=== PATIENT | male | born 1945 | race Caucasian/White ===

== ENCOUNTER → 2023-09-15 11:49 | Outpatient (CLI) | payer OTHER, SELFPAY ==
--- NOTE | 2023-09-15 | DI.ECHO.S_ITS ---
[facility]---------+ [facility] +---------+ : : [address] : : : : [id number] : : : : Phone: [phone]+ Echocardiogram Report + + :Name: ELVER CHERRY Study Date: 09/15/2023 Height: 67 in : :[facility] ReadingLocation: Weight: 190 lb : : Gender: Male BSA: 2.0 m2 : :: 1945 Age: 78 yrs BP: 143/81 mmHg: :Reason For Study: SCREENING : :Ordering Physician: ABDIRASHID, : :JAY Performed By: Lucio Solis : :Referring: JAY MENDENHALL : + + Interpretation Summary 1) Mildly increased left ventricular thickness (concentric) with normal size, normal wall motion, and normal systolic function (EF 55-60%). 2) Normal right ventricular size and function. 3) No significant valvular abnormalities. 4) No prior Echo available for comparison. Procedure: A two-dimensional transthoracic echocardiogram with color flow and Doppler was performed. The study quality was technically adequate. There is no prior echocardiogram noted for this patient. The patient was in normal sinus rhythm during the exam. The heart rate ranged between 59-61 bpm during the study. Left Ventricle: The left ventricle is normal in size. There is mild concentric left ventricular hypertrophy. The ejection fraction is estimated to be 55-60%. Left ventricular systolic function appears normal without focal wall motion abnormalities. Diastolic parameters suggest a relaxation abnormality of the left ventricle, consistent with probable normal filling pressures. Right Ventricle: The right ventricle is normal size. The right ventricular systolic function is normal. Atria: The left atrial size is normal. Right atrial size is normal. Mitral Valve: The mitral valve is normal in structure and function. There is no mitral valve stenosis. There is no mitral regurgitation noted. Aortic Valve: The aortic valve is trileaflet. There is no aortic valve stenosis. No aortic regurgitation is present. Tricuspid Valve: The tricuspid valve is normal in structure and function. There has been no significant change since the previous study. No tricuspid regurgitation. Pulmonic Valve: The pulmonic valve is normal in structure and function. There is no pulmonic valvular stenosis. There is a trace or physiologic amount of pulmonic regurgitation. Great Vessels: The aortic root is normal size. The dimensions of the ascending aorta are normal. The inferior vena cava was not well visualized. Pericardium/ Pleura There is no pericardial effusion. There is no pleural effusion. MMode/2D Measurements & Calculations LVIDd: 3.8 cm LVOT diam: 2.0 cm LVIDs: 2.6 cm Ao root diam: 3.2 cm FS: 30.8 % asc Aorta Diam: 3.3 cm IVSd: 1.4 cm Ao Arch Diam (Prox Trans): 2.8 cm LVPWd: 1.4 cm LV fung. diameter/BSA (cm/m^2): 1.9 LV sys. diameter/BSA (cm/m^2): 1.3 LA A2 area: 13.2 cm2 RA long axis: 4.8 cm LA A4 area: 14.5 cm2 RA area: 17.0 cm2 LA length (vol): 4.2 cm RA vol: 51.4 ml LA vol: 38.8 ml RA : 26.0 ml/m2 LA vol index: 19.6 ml/m2 RVD1 (basal): 3.9 cm RVD2 (mid): 2.9 cm TAPSE: 1.9 cm Doppler Measurements & Calculations Ao V2 max: 87.0 cm/sec LVOT Max Mario: 67.7 cm/sec Ao V2 mean: 61.5 cm/sec LV V1 max P.8 mmHg Ao max P.0 mmHg LV V1 VTI: 17.2 cm Ao mean P.7 mmHg PHUONG(I,D): 2.4 cm2 Ao V2 VTI: 21.1 cm PHUONG(V,D): 2.3 cm2 sev ratio: 0.82 PHUONG indexed to BSA (cm^2/m^2): 1.2 MV E max mario: 50.5 cm/sec PA V2 max: 100.3 cm/sec MV A max mario: 69.6 cm/sec PA V2 mean: 64.2 cm/sec MV E/A: 0.73 PA mean P.9 mmHg Med Peak E' Mario: 5.5 cm/sec PA pr(Accel): 31.0 mmHg E/E' med: 9.2 Lat Peak E' Mario: 5.3 cm/sec E/E' lat: 9.5 E/e' average: 9.3 MV dec time: 0.37 sec SV(LVOT): 51.6 ml Reading Physician:[id number] PM
== END ==
LOC: ECHO 11:59
PROVIDERS: Visit Provider Physician Assistant
DX: Z00.00 Encounter for general adult medical examination without abnormal findings (principal)
CPT/HCPCS: 93306